=== PATIENT | female | born 1965 | race Caucasian/White ===

== ENCOUNTER 2017-05-01 18:26 | Emergency (ER) | payer MEDICARE, OTHER ==
[2017-05-01 18:30] VITALS: BP 151/97; PULSE 128; TEMP 99.4; BMI 30.1
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
[2017-05-01] MEDS ORDERED: KETOROLAC TROMETHAMINE 60 MG/2 ML VIAL IM ONE (19:33)
[2017-05-01] MEDS ORDERED: KETOROLAC TROMETHAMINE 60 MG/2 ML VIAL ONE (19:39)
== END 2017-05-01 20:01 | disposition home or self-care (01) ==
LOC: JERFT 18:26
DX: J09.X2 Influenza due to identified novel influenza A virus with other respiratory manifestations (principal)
CPT/HCPCS: 73000-TC-LT; 87070; 87077; 87430; 87804; 99281-25

== ENCOUNTER 2020-12-11 10:29 | Emergency (ER) | payer MEDICARE, OTHER ==
[2020-12-11 11:03] VITALS: BP 112/76; PULSE 86; TEMP 98.5; BMI 31.8
[2020-12-11] MEDS ORDERED: SODIUM CHLORIDE 1,000 ML IV STA (11:52)
[2020-12-11] MEDS ORDERED: ACETAMINOPHEN 1000 MG/100 ML VIAL (NON FORMULARY) IVPB ONE (11:52)
[2020-12-11] MEDS ORDERED: ACETAMINOPHEN INJECTION 100 ML IVPB ONE (12:06)
[2020-12-11 12:35] LABS: BASO % 0.3 % (0-2.0); EOS % 1.8 % (0-4.5); HEMATOCRIT 38.6 % (32.4-45.2); HEMOGLOBIN 13.2 GM/dL (10.7-15.3); LYMPH % 24.9 % (8-40); MCH 30.2 pg (25.7-33.7); MCHC 34.2 g/dl (32.0-36.0); MEAN CELL VOLUME 88.3 fl (80-96); MEAN PLT VOLUME 7.8 fl (7.5-11.1); PLATELET COUNT 303 10^3/uL (134-434); RBC 4.37 M/mm3 (3.60-5.2); RDW 13.7 % (11.6-15.6); WHITE BLOOD COUNT 8.4 K/mm3 (4.0-10.0)
[2020-12-11 12:41] LABS: EPI CELLS 20 /uL (0-25.1); HYALINE CASTS 2 /uL (0-3.1); URINE APPEARANCE CLEAR; URINE BACTERIA 48 /uL (0-1359); URINE BILIRUBIN NEGATIVE (NEGATIVE); URINE COLOR DK YELLOW; URINE GLUCOSE (UA) NEGATIVE (NEGATIVE); URINE KETONE 2+ (NEGATIVE); URINE LEUK ESTERASE TRACE (NEGATIVE); URINE NITRITE NEGATIVE (NEGATIVE); URINE PROTEIN NEGATIVE (NEGATIVE); URINE RBC 22 /uL (0-23.9); URINE UROBILINOGEN 0.2 mg/dL (0.2-1.0); URINE WBC 21 /uL (0-25.8)
[2020-12-11 13:03] LABS: BLOOD UREA NITROGEN 13.9 mg/dL (7-18); CALCIUM 8.6 mg/dL (8.5-10.1)
[2020-12-11 13:04] LABS: ALBUMIN 3.7 g/dl (3.4-5.0)
[2020-12-11 13:06] LABS: CREATININE 0.6 mg/dL (0.55-1.3)
[2020-12-11 13:08] LABS: TOT PROT 7.9 g/dl (6.4-8.2)
[2020-12-11 13:10] LABS: BILIRUBIN,TOTAL 1.3 mg/dL (0.2-1)
== END 2020-12-11 14:17 | disposition home or self-care (01) ==
LOC: JERFT 10:29 → JER 10:29 → JERFT 14:17
PROC: 3E0333Z Introduction of Anti-inflammatory into Peripheral Vein, Percutaneous Approach (ICD-10-PCS; principal; 2020-12-11)
PROC: 3E0337Z Introduction of Electrolytic and Water Balance Substance into Peripheral Vein, Percutaneous Approach (ICD-10-PCS; 2020-12-11)
DX: R10.84 Generalized abdominal pain (principal)
CPT/HCPCS: 36415; 80053; 81003; 83690; 85025; 87086; 96374; 96375; 99284-25; C9803; J0131; U0003; U0005

== ENCOUNTER 2023-03-23 11:12 | Emergency (ER) | payer BC, OTHER ==
[2023-03-23 11:54] VITALS: RESP 18; BMI 32.7
[2023-03-23] MEDS ORDERED: ALBUTEROL SO4 2.5/IPRATROPIUM 0.5 INH SOL 3 ML VIAL.NEB. NEB ONE ×2 (13:48→13:51)
[2023-03-23 14:23] LABS: BASO % 0.4 % (0-2.0); EOS % 3.2 % (0-4.5); HEMATOCRIT 36.5 % (32.4-45.2); LYMPH % 25.5 % (8-40); MCH 29.1 pg (25.7-33.7); MEAN CELL VOLUME 88.3 fl (80-96); MEAN PLT VOLUME 8.1 fl (7.5-11.1); NEUT % 63.9 % (42.8-82.8); PLATELET COUNT 282 10^3/uL (134-434); RBC 4.13 M/mm3 (3.60-5.2); RDW 14.3 % (11.6-15.6); WHITE BLOOD COUNT 7.7 K/mm3 (4.0-10.0)
[2023-03-23 14:32] LABS: ACTIVATED PTT 27.9 SECONDS (25.2-36.5); INR 1.09 (0.83-1.09); PROTHROMBIN TIME (PATIENT) 12.6 SEC (9.7-13.0)
[2023-03-23 14:41] LABS: POTASSIUM 5.3 mmol/L (3.5-5.1)
[2023-03-23 14:44] LABS: ALBUMIN 3.2 g/dl (3.4-5.0); BLOOD UREA NITROGEN 18.6 mg/dL (7-18); CALCIUM 8.3 mg/dL (8.5-10.1)
[2023-03-23 14:47] LABS: CREATININE 0.4 mg/dL (0.55-1.3)
[2023-03-23 14:48] LABS: BILIRUBIN,TOTAL 0.7 mg/dL (0.2-1); TOT PROT 7.2 g/dl (6.4-8.2)
[2023-03-23] MEDS ORDERED: ACETAMINOPHEN 325 MG TABLET (FP) PO ONE (16:39)
[2023-03-23 16:41] VITALS: TEMP 99
[2023-03-23] MEDS ORDERED: ACETAMINOPHEN 325 MG TABLET (FP) ONE (16:42)
[2023-03-23 18:11] VITALS: BP 113/72; PULSE 88
== END 2023-03-23 18:44 | disposition home or self-care (01) ==
LOC: JER 11:12
PROC: 3E0F7GC Introduction of Other Therapeutic Substance into Respiratory Tract, Via Natural or Artificial Opening (ICD-10-PCS; principal; 2023-03-23)
DX: R07.9 Chest pain, unspecified (principal); R05.9 Cough, unspecified; R06.02 Shortness of breath; R50.9 Fever, unspecified; R53.83 Other fatigue; R09.81 Nasal congestion; R06.2 Wheezing; M54.9 Dorsalgia, unspecified; J40 Bronchitis, not specified as acute or chronic; M79.10 Myalgia, unspecified site; Z20.822 Contact with and (suspected) exposure to COVID-19
CPT/HCPCS: 0241U-QW; 36415; 71046-TC-FY; 80053; 84484; 85025; 85610; 85730; 93005; 93010; 93970-TC; 99285-25